=== PATIENT | female | born 1930 | race Hispanic/Latino ===

== ENCOUNTER 2017-10-18 20:09 | Inpatient (IN) | payer MEDICARE ==
[~2017-10-18] VITALS: Ht 162.6 cm; Wt 49.2 kg
[~2017-10-18 20:09] MED LIST: BENZ-39 PO; CLON0.1T PO; DONE5TAB33 PO; IBUP-2076 PO; LEVO125T11 PO; LEVO250T2 PO; TRAM-355 PO
[2017-10-18 20:48] LABS: APPEARANCE,URINE Cloudy (CLEAR); BILIRUBIN,URINE Small (NEGATIVE); COLOR,URINE Dark Yellow (YELLOW); GLUCOSE, URINE (UA) Negative (NEGATIVE); KETONES,URINE Negative (NEGATIVE); LEUKOCYTE ESTERASE ,URINE Trace (NEGATIVE); NITRATE,URINE Negative (NEGATIVE); OCCULT BLOOD,URINE Negative (NEGATIVE); PROTEIN,URINE Trace (NEGATIVE)
[2017-10-18 20:48] LABS: BASOPHILS % (AUTO) 0.2 % (0.0-5.0); HEMATOCRIT 33.5 % (36-48); LYMPHOCYTES % (AUTO) 2.9 % (21.0-51.0); MEAN CORPUSCULAR HEMOGLOBIN 31.8 pg (27.0-33.0); MEAN CORPUSCULAR HGB CONC 32.4 g/dL (32.0-36.0); MEAN CORPUSCULAR VOLUME 98.1 fL (79-99); MONOCYTES % (AUTO) 2.1 % (3.0-13.0); NEUTROPHILS % (AUTO) 94.8 % (40.0-77.0); PLATELET COUNT (AUTO) 266 K/uL (130-400); RED BLOOD CELL COUNT(AUTO) 3.41 MIL/uL (4.00-5.50); RED CELL DISTRIBUTION WIDTH 15.3 % (11.0-15.5); WHITE BLOOD COUNT (AUTO) 21.9 K/uL (4.8-10.8)
[2017-10-18 20:55] LABS: AMPHET/METH SCREEN,URINE NEGATIVE (NEGATIVE); BARBITURATE SCREEN, URINE NEGATIVE (NEGATIVE); BENZODIAZEPINES SCREEN,URINE NEGATIVE (NEGATIVE); CANNABINOID SCREEN,URINE NEGATIVE (NEGATIVE); COCAINE SCREEN,URINE NEGATIVE (NEGATIVE); OPIATE SCREEN,URINE NEGATIVE (NEGATIVE); PHENCYCLIDINE SCREEN,URINE NEGATIVE (NEGATIVE)
[2017-10-18 20:59] LABS: AMORPHOUS SEDIMENT,UR Few /LPF (None Seen); BACTERIA,URINE Rare /HPF (None Seen); RBC,URINE None Seen /HPF (0-1); SQUAMOUS EPITHELIAL CELL,UR 0-2 /HPF (0-2); WBC,URINE 0-1 /HPF (0-1)
[2017-10-18 21:06] LABS: CREATININE 1.5 mg/dL (0.5-1.5); POTASSIUM 3.9 mmol/L (3.5-5.1)
[2017-10-18 21:17] LABS: INR 1.13 (0.85-1.15); PARTIAL THROMBOPLASTIN TIME 28.8 SEC (26.3-35.5); PROTHROMBIN TIME 11.6 SEC (9.6-11.6)
[2017-10-18 21:21] LABS: BILIRUBIN,TOTAL 0.9 mg/dL (0.2-1.0); CREATINE KINASE MB 10.7 ng/mL (0.5-3.6); TOTAL PROTEIN, SERUM 6.4 g/dL (6.0-8.3)
[2017-10-18 21:33] LABS: B-TYPE NATRIURETIC PEPTIDE 704 pg/mL (0-100)
[2017-10-18] MEDS ORDERED: SODIUM CHLORIDE 0.9% 1000ML 1,000 ML IV ONE (21:36)
[2017-10-18] MEDS ORDERED: VANCOMYCIN 1GM+NS 250ML 250 ML IV ONE (21:37)
[2017-10-18] MEDS ORDERED: ZOSYN 3.375GM+NS 50ML 50 ML IV ONE (22:12)
[2017-10-18] MEDS ORDERED: VANCOMYCIN PROTOCOL PER PHARMACY IV SCH (22:30)
[2017-10-18] MEDS ORDERED: MEROPENEM 500MG+NS 50ML 50 ML IV SCH (23:30)
[2017-10-18] MEDS ORDERED: POTASSIUM CHLORIDE 20 MEQ ERTAB PO PRN (23:30)
[2017-10-18] MEDS ORDERED: POTASSIUM CHLORIDE 10% ELIXIR 20 MEQ/15 ML UDCUP PO PRN (23:30)
[2017-10-18] MEDS ORDERED: GLUCAGON 1MG KIT 1 MG ML IM PRN (23:30)
[2017-10-18] MEDS ORDERED: POTASSIUM CHLORIDE 20MEQ/100ML 100 ML IV PRN (23:30)
[2017-10-18] MEDS ORDERED: ONDANSETRON HCL MDV 20ML 2 MG/ML VIAL IV PRN (23:30)
[2017-10-18] MEDS ORDERED: VANCOMYCIN 1GM+NS 250ML 250 ML IV SCH (23:30)
[2017-10-18] MEDS ORDERED: LIDOCAINE HCL-MPF 1% 2ML VIAL IVP PRN (23:30)
[2017-10-18] MEDS ORDERED: DEXTROSE 50%-WATER 50 ML DISP.SYRIN IV PRN (23:30)
[2017-10-19] MEDS ORDERED: MEROPENEM 500 MG VIAL ONE ×2 (00:50→13:42)
[2017-10-19] MEDS ORDERED: SODIUM CHLORIDE 0.9% 100 ML IV ONE (00:50)
[2017-10-19 05:55] LABS: CREATINE KINASE MB 8.5 ng/mL (0.5-3.6); TROPONIN I 0.17 ng/mL (0.00-0.06)
[2017-10-19] MEDS ORDERED: COMPOUND IV REFRIGERATED 1 EACH IVSOLN MISC PRN (06:15)
[2017-10-19 07:03] LABS: HEMATOCRIT 31.6 % (36-48); MEAN CORPUSCULAR HEMOGLOBIN 33.2 pg (27.0-33.0); MEAN CORPUSCULAR HGB CONC 33.9 g/dL (32.0-36.0); PLATELET COUNT (AUTO) 224 K/uL (130-400); RED BLOOD CELL COUNT(AUTO) 3.22 MIL/uL (4.00-5.50); RED CELL DISTRIBUTION WIDTH 15.3 % (11.0-15.5); WHITE BLOOD COUNT (AUTO) 19.5 K/uL (4.8-10.8)
[2017-10-19 07:22] LABS: CREATININE 1.4 mg/dL (0.5-1.5); POTASSIUM 3.7 mmol/L (3.5-5.1)
[2017-10-19] MEDS ORDERED: FAMOTIDINE/PF 20 MG/2 ML VIAL IV SCH (09:00)
[2017-10-19] MEDS ORDERED: ENOXAPARIN SODIUM 30 MG/0.3 ML SQ SCH (09:00)
[2017-10-19] MEDS: PANTOPRAZOLE SODIUM 40 MG TABLET.DR PO SCH (09:00)
[2017-10-19] MEDS: DEXTROSE 5%-LACTATED RINGERS 1,000 ML IV SCH (10:30)
[2017-10-19] MEDS ORDERED: ENOXAPARIN SODIUM 30 MG/0.3 ML SQ ONE ×2 (10:31→21:58)
[2017-10-19] MEDS ORDERED: FAMOTIDINE/PF 20 MG/2 ML VIAL IV ONE ×2 (10:31→21:58)
[2017-10-19 10:39] LABS: CREATINE KINASE MB 8.7 ng/mL (0.5-3.6)
[2017-10-19] MEDS ORDERED: DEXTROSE 5%-LACTATED RINGERS 1,000 ML IV ONE (10:48)
[2017-10-19] MEDS ORDERED: POTASSIUM CHLORIDE 10% ELIXIR 20 MEQ/15 ML UDCUP PO PRN (11:15)
[2017-10-19] MEDS ORDERED: LIDOCAINE HCL-MPF 1% 2ML VIAL IVP PRN (11:15)
[2017-10-19] MEDS ORDERED: POTASSIUM CHLORIDE 20MEQ/100ML 100 ML IV PRN (11:15)
[2017-10-19] MEDS ORDERED: POTASSIUM CHLORIDE 20 MEQ ERTAB PO PRN (11:15)
[2017-10-19 16:08] LABS: CREATININE 1.5 mg/dL (0.5-1.5); POTASSIUM 3.7 mmol/L (3.5-5.1)
[2017-10-19] MEDS: ENOXAPARIN SODIUM 30 MG/0.3 ML SQ SCH (21:00)
[2017-10-19] MEDS ORDERED: METOPROLOL TARTRATE 1 MG/ML 5ML VIAL IV SCH (21:45)
[2017-10-19] MEDS ORDERED: METOPROLOL TARTRATE 1 MG/ML 5ML VIAL IV ONE (21:58)
[2017-10-19 23:35] VITALS: BP 123/59
[2017-10-20] MEDS: DEXTROSE 5%-LACTATED RINGERS 1,000 ML IV SCH (00:36)
[2017-10-20] MEDS: MEROPENEM 500 MG VIAL IVP SCH ×5 (00:36→22:20)
[2017-10-20] MEDS: ASCORBIC ACID 500 MG TAB PO SCH ×3 (00:39→22:21)
[2017-10-20 00:48] LABS: CREATINE KINASE MB 3.3 ng/mL (0.5-3.6); TROPONIN I 0.29 ng/mL (0.00-0.06)
[2017-10-20 04:00] VITALS: BP 121/79
[2017-10-20 07:00] VITALS: BP 111/62
[2017-10-20 07:18] LABS: HEMATOCRIT 25.2 % (36-48); MEAN CORPUSCULAR HEMOGLOBIN 31.5 pg (27.0-33.0); MEAN CORPUSCULAR HGB CONC 32.4 g/dL (32.0-36.0); MEAN CORPUSCULAR VOLUME 97.4 fL (79-99); PLATELET COUNT (AUTO) 163 K/uL (130-400); RED BLOOD CELL COUNT(AUTO) 2.58 MIL/uL (4.00-5.50); RED CELL DISTRIBUTION WIDTH 15.3 % (11.0-15.5); WHITE BLOOD COUNT (AUTO) 15.6 K/uL (4.8-10.8)
[2017-10-20 07:32] LABS: CREATININE 1.6 mg/dL (0.5-1.5); POTASSIUM 3.5 mmol/L (3.5-5.1)
[2017-10-20 07:50] LABS: CREATINE KINASE MB 1.8 ng/mL (0.5-3.6); TROPONIN I 0.25 ng/mL (0.00-0.06)
[2017-10-20] MEDS ORDERED: DEXTROSE 5%-WATER 1,000 ML IV SCH (09:25)
[2017-10-20 10:36] LABS: RETICULOCYTE % (AUTO) 1.19 % (0.42-2.23)
[2017-10-20 11:26] LABS: % IRON SATURATION 47.3 % (22-44)
[2017-10-20] MEDS: PANTOPRAZOLE SODIUM 40 MG TABLET.DR PO SCH (11:27)
[2017-10-20] MEDS: MULTIVITAMIN WITH MINERALS TABLET PO SCH (11:27)
[2017-10-20] MEDS: ASPIRIN 81MG TAB.CHEW PO SCH (11:27)
[2017-10-20] MEDS: ENOXAPARIN SODIUM 30 MG/0.3 ML SQ SCH ×2 (11:28→22:20)
[2017-10-20 11:48] VITALS: BP 111/70
[2017-10-20] MEDS ORDERED: COMPOUND IV MISC 1 EACH IVSOLN MISC PRN (13:30)
[2017-10-20 16:47] VITALS: BP 124/66
[2017-10-20 19:56] VITALS: BP 114/83
[2017-10-20] MEDS: VANCOMYCIN 750MG + NS 250 ML IV SCH ×2 (22:22)
[2017-10-21] VITALS (7 sets, daily range): BP systolic 116–135; BP diastolic 68–86
[2017-10-21 04:01] LABS: HEMATOCRIT 24.8 % (36-48); MEAN CORPUSCULAR HEMOGLOBIN 33.3 pg (27.0-33.0); MEAN CORPUSCULAR HGB CONC 34.3 g/dL (32.0-36.0); MEAN CORPUSCULAR VOLUME 97.1 fL (79-99); PLATELET COUNT (AUTO) 145 K/uL (130-400); RED BLOOD CELL COUNT(AUTO) 2.56 MIL/uL (4.00-5.50); RED CELL DISTRIBUTION WIDTH 14.9 % (11.0-15.5); WHITE BLOOD COUNT (AUTO) 16.4 K/uL (4.8-10.8)
[2017-10-21 04:08] LABS: CREATININE 1.2 mg/dL (0.5-1.5); POTASSIUM 3.5 mmol/L (3.5-5.1)
[2017-10-21 04:23] LABS: B-TYPE NATRIURETIC PEPTIDE 364 pg/mL (0-100)
[2017-10-21 04:26] LABS: BAND NEUTROPHILS % (MANUAL) 16 % (0-2); LYMPHOCYTES % (MANUAL) 1 % (22-44); MAN.DIFF COMMENT-IMPRESSION MANUAL DIFFERENTIAL; METAMYELOCYTES % 1 % (0-0); SEGMENTED NEUTROPHILS % 82 % (40-70)
[2017-10-21 04:27] LABS: PLATELET MORPHOLOGY COMMENT ADEQUATE
[2017-10-21] MEDS: HONEY 1 APPL/ML TUBE TP SCH ×2 (05:38→17:45)
[2017-10-21] MEDS: MEROPENEM 500 MG VIAL IVP SCH ×2 (06:48→12:53)
[2017-10-21] MEDS: ENOXAPARIN SODIUM 30 MG/0.3 ML SQ SCH ×2 (09:00→21:25)
[2017-10-21] MEDS ORDERED: ACETAMINOPHEN-CODEINE 300/30MG TAB PO PRN (10:00)
[2017-10-21] MEDS ORDERED: MORPHINE SULFATE 4 MG/1ML SYG IVP PRN (10:00)
[2017-10-21] MEDS: IRON SUCROSE COMPLEX 100 MG in SODIUM CHLORIDE 0.9% 50 ML IV SCH (12:53)
[2017-10-21] MEDS: PANTOPRAZOLE SODIUM 40 MG TABLET.DR PO SCH (12:54)
[2017-10-21] MEDS: MULTIVITAMIN WITH MINERALS TABLET PO SCH (12:54)
[2017-10-21] MEDS: ASCORBIC ACID 500 MG TAB PO SCH ×2 (12:54→19:42)
[2017-10-21] MEDS: ASPIRIN 81MG TAB.CHEW PO SCH (12:54)
[2017-10-21] MEDS ORDERED: CEFAZOLIN 1GM / D5W 50ML 50 ML IV SCH (15:30)
[2017-10-21] MEDS ORDERED: CEFAZOLIN SODIUM 1 GM VIAL IVP SCH (15:45)
[2017-10-21] MEDS: CEFAZOLIN SODIUM 1 GM VIAL IVP SCH (21:24)
[2017-10-22] VITALS (21 sets, daily range): BP systolic 88–126; BP diastolic 50–80
[2017-10-22 04:36] LABS: MEAN CORPUSCULAR HEMOGLOBIN 33.2 pg (27.0-33.0); MEAN CORPUSCULAR HGB CONC 34.1 g/dL (32.0-36.0); MEAN CORPUSCULAR VOLUME 97.3 fL (79-99); NUCLEATED RED BLOOD CELLS 0.1 % (0.0-0.19); PLATELET COUNT (AUTO) 127 K/uL (130-400); RED BLOOD CELL COUNT(AUTO) 2.47 MIL/uL (4.00-5.50); RED CELL DISTRIBUTION WIDTH 15.1 % (11.0-15.5); WHITE BLOOD COUNT (AUTO) 14.5 K/uL (4.8-10.8)
[2017-10-22 04:59] LABS: CREATININE 0.9 mg/dL (0.5-1.5)
[2017-10-22] MEDS: CEFAZOLIN SODIUM 1 GM VIAL IVP SCH ×3 (05:03→20:52)
[2017-10-22 06:09] LABS: BAND NEUTROPHILS % (MANUAL) 9 % (0-2); LYMPHOCYTES % (MANUAL) 7 % (22-44); MAN.DIFF COMMENT-IMPRESSION MANUAL DIFFERENTIAL; PLATELET MORPHOLOGY COMMENT SLIGHTLY DECREASED; REACTIVE LYMPHOCYTES 1 % (0-0); SEGMENTED NEUTROPHILS % 83 % (40-70)
[2017-10-22] MEDS: ASCORBIC ACID 500 MG TAB PO SCH ×2 (09:00→20:52)
[2017-10-22] MEDS: ASPIRIN 81MG TAB.CHEW PO SCH (09:00)
[2017-10-22] MEDS: ENOXAPARIN SODIUM 30 MG/0.3 ML SQ SCH ×2 (09:00→20:53)
[2017-10-22] MEDS: MULTIVITAMIN WITH MINERALS TABLET PO SCH (09:00)
[2017-10-22] MEDS: PANTOPRAZOLE SODIUM 40 MG TABLET.DR PO SCH (09:00)
[2017-10-22] MEDS ORDERED: DEXTROSE 5%-WATER 1,000 ML IV SCH (10:00)
[2017-10-22 11:49] LABS: INR 1.02 (0.85-1.15); PROTHROMBIN TIME 10.7 SEC (9.6-11.6)
[2017-10-22] MEDS: IRON SUCROSE COMPLEX 100 MG in SODIUM CHLORIDE 0.9% 50 ML IV SCH (17:32)
[2017-10-22] MEDS: HONEY 1 APPL/ML TUBE TP SCH (18:20)
[2017-10-22] MEDS: VANCOMYCIN 750MG + NS 250 ML IV SCH ×2 (20:52)
[2017-10-23 03:35] VITALS: BP 133/64
[2017-10-23] MEDS: CEFAZOLIN SODIUM 1 GM VIAL IVP SCH ×2 (05:01→13:47)
[2017-10-23 05:56] LABS: HEMATOCRIT 23.1 % (36-48); MEAN CORPUSCULAR HEMOGLOBIN 31.5 pg (27.0-33.0); MEAN CORPUSCULAR HGB CONC 32.5 g/dL (32.0-36.0); MEAN CORPUSCULAR VOLUME 96.9 fL (79-99); PLATELET COUNT (AUTO) 142 K/uL (130-400); RED BLOOD CELL COUNT(AUTO) 2.38 MIL/uL (4.00-5.50); RED CELL DISTRIBUTION WIDTH 15.1 % (11.0-15.5); WHITE BLOOD COUNT (AUTO) 12.1 K/uL (4.8-10.8)
[2017-10-23 06:11] LABS: CREATININE 0.7 mg/dL (0.5-1.5); POTASSIUM 3.8 mmol/L (3.5-5.1)
[2017-10-23 08:23] VITALS: BP 106/82
[2017-10-23] MEDS: PANTOPRAZOLE SODIUM 40 MG TABLET.DR PO SCH (09:00)
[2017-10-23] MEDS: ASPIRIN 81MG TAB.CHEW PO SCH (09:00)
[2017-10-23] MEDS: MULTIVITAMIN WITH MINERALS TABLET PO SCH (09:00)
[2017-10-23] MEDS: ASCORBIC ACID 500 MG TAB PO SCH (09:00)
[2017-10-23 11:20] VITALS: BP 113/73
[2017-10-23] MEDS: HONEY 1 APPL/ML TUBE TP SCH (11:22)
[2017-10-23] MEDS: ENOXAPARIN SODIUM 30 MG/0.3 ML SQ SCH (11:25)
[2017-10-23] MEDS: IRON SUCROSE COMPLEX 100 MG in SODIUM CHLORIDE 0.9% 50 ML IV SCH (13:47)
[2017-10-23 18:02] VITALS: BP 100/64
[2017-10-23 20:00] VITALS: BP 96/68
[2017-10-24] VITALS: BP 121/75
== END 2017-10-24 04:10 | DRG 871 ==
LOC: EDH 20:09 → EDHIP 21:56 → OBSVTOIN 21:56 → 2AH 10-19 22:40 → 3CH 10-21 20:01
PROVIDERS: ADMIT Family Medicine; ATTEND Family Medicine
PROC: 0HB6XZZ Excision of Back Skin, External Approach (ICD-10-PCS; 2017-10-19)
PROC: 0DH63UZ Insertion of Feeding Device into Stomach, Percutaneous Approach (ICD-10-PCS; principal; 2017-10-22)
DX: A41.9 Sepsis, unspecified organism (principal); E43 Unspecified severe protein-calorie malnutrition; L89.154 Pressure ulcer of sacral region, stage 4; G93.41 Metabolic encephalopathy; I82.412 Acute embolism and thrombosis of left femoral vein; E87.0 Hyperosmolality and hypernatremia; R13.12 Dysphagia, oropharyngeal phase; E86.0 Dehydration; R64 Cachexia; Z68.1 Body mass index [BMI] 19.9 or less, adult; N39.0 Urinary tract infection, site not specified; B96.89 Other specified bacterial agents as the cause of diseases classified elsewhere; D64.9 Anemia, unspecified; E03.9 Hypothyroidism, unspecified; E78.5 Hyperlipidemia, unspecified; F03.90 Unspecified dementia, unspecified severity, without behavioral disturbance, psychotic disturbance, mood disturbance, and anxiety; I10 Essential (primary) hypertension; L89.619 Pressure ulcer of right heel, unspecified stage; M19.90 Unspecified osteoarthritis, unspecified site; L89.629 Pressure ulcer of left heel, unspecified stage; Z66 Do not resuscitate; Z74.01 Bed confinement status; Z93.1 Gastrostomy status; Z93.3 Colostomy status; Z90.710 Acquired absence of both cervix and uterus
CPT/HCPCS: 36415; 70450; 71045; 80048; 80053; 80305; 81001; 82550; 82553; 82607; 82728; 82746; 82948; 83874; 83880; 84484; 85025; 85027; 85610; 85730; 87040; 87070; 87076; 87077; 87088; 87186; 92610; 93005; 93971; 99291; A4218; C1894; J0690; J1650; J1756; J2185; J2270; J2543; J3370; J3490; J7030; J7070

== ENCOUNTER 2018-05-05 10:41 | Emergency (ER) | payer MEDICARE ==
[~2018-05-05 10:41] MED LIST changes: -BENZ-39 PO; -DONE5TAB33 PO; -IBUP-2076 PO; -LEVO125T11 PO; -LEVO250T2 PO; -TRAM-355 PO
[2018-05-05] MEDS ORDERED: DIATR MEGLU/DIATRIZOATE SODIUM 30 ML BOTTLE ONE (11:10)
== END 2018-05-05 12:46 | disposition home or self-care (01) ==
LOC: EDH 10:41
DX: Z43.1 Encounter for attention to gastrostomy (principal); I10 Essential (primary) hypertension; M19.90 Unspecified osteoarthritis, unspecified site; Z79.899 Other long term (current) drug therapy
CPT/HCPCS: 43760; 74018; 99284; Q9963

== ENCOUNTER → 2018-08-09 | Outpatient (CLI) | payer MEDICARE, OTHER | END | disposition home or self-care (01) | LOC: RAH 10:45 | PROVIDERS: ATTEND Internal Medicine Infectious Disease | DX: J90 Pleural effusion, not elsewhere classified (principal); J98.11 Atelectasis; L90.5 Scar conditions and fibrosis of skin; I51.7 Cardiomegaly | CPT/HCPCS: 71250 ==

== ENCOUNTER 2018-08-31 00:11 | Inpatient (IN) | payer MEDICARE | END 2018-09-03 21:44 | LOC: EDH 00:11 → 4AH 09-02 18:50 → EDHIP 02:25 → 2CH 05:48 | DX: A41.9 Sepsis, unspecified organism (principal); J18.9 Pneumonia, unspecified organism; E43 Unspecified severe protein-calorie malnutrition; G93.41 Metabolic encephalopathy; L89.154 Pressure ulcer of sacral region, stage 4; R53.2 Functional quadriplegia; R64 Cachexia; E87.0 Hyperosmolality and hypernatremia; E87.1 Hypo-osmolality and hyponatremia ==

== ENCOUNTER 2019-08-23 07:10 | Emergency (ER) | payer MEDICARE ==
[~2019-08-23 07:10] MED LIST changes: +ASCO500T10 PEG; +DSSL PEG; +FURO20TA6 PEG; +METO10TA41 PEG; +MULT9LIQ9 PO
== END 2019-08-23 11:10 | disposition home or self-care (01) ==
LOC: EDH 07:10
DX: K94.23 Gastrostomy malfunction (principal); I10 Essential (primary) hypertension; M19.90 Unspecified osteoarthritis, unspecified site

== ENCOUNTER 2019-09-05 09:59 | Inpatient (IN) | payer MEDICARE ==
[~2019-09-05] VITALS: Ht 160 cm; Wt 61.1 kg
[2019-09-05 10:47] LABS: BASOPHILS % (AUTO) 0.1 % (0.0-5.0); EOSINOPHILS % (AUTO) 0.1 % (0.0-8.0); HEMATOCRIT 33.9 % (36-48); LYMPHOCYTES % (AUTO) 3.4 % (21.0-51.0); MEAN CORPUSCULAR HEMOGLOBIN 33.4 pg (27.0-33.0); MEAN CORPUSCULAR HGB CONC 33.9 g/dL (32.0-36.0); MEAN CORPUSCULAR VOLUME 98.5 fL (79-99); MONOCYTES % (AUTO) 5.9 % (3.0-13.0); PLATELET COUNT (AUTO) 126 K/uL (130-400); RED BLOOD CELL COUNT(AUTO) 3.44 MIL/uL (4.00-5.50); RED CELL DISTRIBUTION WIDTH 13.2 % (11.0-15.5); WHITE BLOOD COUNT (AUTO) 14.6 K/uL (4.8-10.8)
[2019-09-05 10:49] LABS: APPEARANCE,URINE TURBID (CLEAR); BILIRUBIN,URINE NEGATIVE (NEGATIVE); COLOR,URINE YELLOW (YELLOW); GLUCOSE, URINE (UA) NEGATIVE (NEGATIVE); KETONES,URINE NEGATIVE (NEGATIVE); LEUKOCYTE ESTERASE ,URINE LARGE (NEGATIVE); NITRATE,URINE POSITIVE (NEGATIVE); OCCULT BLOOD,URINE LARGE (NEGATIVE); PROTEIN,URINE 100 mg/dL (NEGATIVE); UROBILINOGEN,URINE 0.2 mg/dL (0.2-1.0)
[2019-09-05 10:55] LABS: ALBUMIN 2.6 g/dL (3.5-5.0); BILIRUBIN,TOTAL 0.4 mg/dL (0.2-1.0); CREATININE 1.5 mg/dL (0.5-1.5); POTASSIUM 3.8 mmol/L (3.5-5.1); TOTAL PROTEIN, SERUM 7.2 g/dL (6.0-8.3)
[2019-09-05] MEDS ORDERED: ZOSYN 3.375GM+NS 50ML 50 ML IV ONE ×2 (10:55→19:00)
[2019-09-05] MEDS ORDERED: SODIUM CHLORIDE 0.9% 1000ML 1,000 ML IV ONE ×2 (10:55→12:17)
[2019-09-05 11:01] LABS: BACTERIA,URINE Many /HPF (None Seen); SQUAMOUS EPITHELIAL CELL,UR Few /HPF (0-2); WBC,URINE 51-100 /HPF (0-1)
[2019-09-05] MEDS ORDERED: DIATR MEGLU/DIATRIZOATE SODIUM 30 ML BOTTLE ONE (14:37)
[2019-09-05] MEDS: ZOSYN 3.375GM+NS 50ML 50 ML IV SCH (21:00)
[2019-09-05] MEDS ORDERED: ENOXAPARIN SODIUM 30 MG/0.3 ML SQ ONE (21:56)
[2019-09-05 22:10] VITALS: BP 151/82
[2019-09-05] MEDS ORDERED: NYSTATIN 15 GM POWDER TP SCH (23:30)
[2019-09-05] MEDS ORDERED: METOCLOPRAMIDE 10 MG TABLET PEG SCH (23:30)
[2019-09-05] MEDS ORDERED: ONDANSETRON ODT 4 MG TAB PEG PRN (23:30)
[2019-09-05] MEDS ORDERED: NEOMY SULF/BACITRA/POLYMYXIN B 1 EACH PACKET TP SCH (23:30)
[2019-09-05] MEDS ORDERED: LEVO750T21 PEG (23:31)
[2019-09-05] MEDS ORDERED: FAMO20TA8 PEG (23:31)
[2019-09-05] MEDS ORDERED: ASPI-555 PEG (23:31)
[2019-09-05] MEDS ORDERED: ONDA4TAB10 PEG (23:31)
[2019-09-05] MEDS ORDERED: SANTO TP (23:31)
[2019-09-05] MEDS ORDERED: NEOM1PAC2 TP (23:31)
[2019-09-05] MEDS ORDERED: NYSTPW TP (23:31)
--- NOTE | 2019-09-05 23:39 | NUR ---
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
[2019-09-06] MEDS: ACETAMINOPHEN ELIXIR 650 MG/20.3 ML UDCUP PEG PRN (03:33)
[2019-09-06 03:53] VITALS: BP 152/66
--- NOTE | 2019-09-06 04:00 | NUR ---
BED BATH Pt bathed per staff,Oral care,hollingsworth cath care rendered.
[2019-09-06 05:39] LABS: HEMATOCRIT 31.9 % (36-48); MEAN CORPUSCULAR HEMOGLOBIN 33.4 pg (27.0-33.0); MEAN CORPUSCULAR HGB CONC 33.2 g/dL (32.0-36.0); MEAN CORPUSCULAR VOLUME 100.6 fL (79-99); PLATELET COUNT (AUTO) 113 K/uL (130-400); RED BLOOD CELL COUNT(AUTO) 3.17 MIL/uL (4.00-5.50); RED CELL DISTRIBUTION WIDTH 13.2 % (11.0-15.5); WHITE BLOOD COUNT (AUTO) 8.9 K/uL (4.8-10.8)
[2019-09-06 05:47] LABS: CREATININE 1.2 mg/dL (0.5-1.5); MAGNESIUM 2.6 mg/dL (1.80-2.40); POTASSIUM 3.1 mmol/L (3.5-5.1)
[2019-09-06 06:06] LABS: BAND NEUTROPHILS % (MANUAL) 6 % (0-2); LYMPHOCYTES % (MANUAL) 6 % (22-44); MAN.DIFF COMMENT-IMPRESSION MANUAL DIFFERENTIAL; MONOCYTES % (MANUAL) 4 % (2-9); SEGMENTED NEUTROPHILS % 84 % (40-70)
[2019-09-06 08:00] VITALS: BP 138/59
[2019-09-06] MEDS ORDERED: ENOXAPARIN SODIUM 30 MG/0.3 ML SQ SCH (09:00)
[2019-09-06] MEDS: COLLAGENASE APPL TP SCH (09:00)
[2019-09-06] MEDS: SODIUM HYPOCHLORITE 0.25% [HALF STRENGTH] 473 ML TOPICAL SOLN TP SCH (09:00)
[2019-09-06] MEDS ORDERED: LEVOFLOXACIN 750 MG TABLET PEG SCH (09:00)
[2019-09-06] MEDS: MULTIVITS W-MIN/FERROUS GLUC 237 ML BOTTLE PEG SCH (09:00)
--- NOTE | 2019-09-06 09:16 | NUR ---
NOTIFIED DR. FRANCIS THAT THE PEG TUBE IS LEAKING. HE ORDERED CONSULT FOR DR. COHEN.
[2019-09-06] MEDS ORDERED: VANCOMYCIN PROTOCOL PER PHARMACY IV SCH (09:30)
[2019-09-06] MEDS ORDERED: COMPOUND IV REFRIGERATED 1 EACH IVSOLN MISC PRN (09:45)
[2019-09-06] MEDS ORDERED: VANCOMYCIN 1.25 GM in SODIUM CHLORIDE 0.9% 250 ML IV ONE (10:00)
[2019-09-06] MEDS: ZOSYN 3.375GM+NS 50ML 50 ML IV SCH ×2 (11:13→20:27)
[2019-09-06] MEDS: ASPIRIN 81MG TAB.CHEW PEG SCH (11:14)
[2019-09-06] MEDS: LEVOFLOXACIN 750 MG TABLET PEG SCH (11:14)
[2019-09-06] MEDS: ASCORBIC ACID 500 MG TAB PEG SCH ×2 (11:14→20:28)
[2019-09-06] MEDS: DOCUSATE NA 100MG/10ML UDCUP PEG SCH (11:14)
[2019-09-06] MEDS: FAMOTIDINE 20MG TAB 20 MG TAB PEG SCH (11:15)
[2019-09-06] MEDS: FUROSEMIDE 20 MG TABLET PEG SCH (11:16)
[2019-09-06 12:00] VITALS: BP 123/55
--- NOTE | 2019-09-06 12:52 | NUR ---
INITIAL Patient is a intermediate resident at [facility]. Emergency contats are daughters: Tanisha Faithirez, [phone] and Meena Oglesby, [phone]. MAVIS/Choice completed and placed in chart. SHARATH contacted Milly Haro, Social Scientist for [facility] and was informed that patient is able to return to halfway. DCP is [facility]. Addendum: 09/06/19 at 1255 by LEANNA BAXTER SS Amended: Links added.
--- NOTE | 2019-09-06 13:18 | NUR ---
TUBE FEEDING RECOMMENDATIONS PEG IN PLACE. CURRENTLY RECEIVING JEVITY 1.5 - 1 CAN EVERY 6 HRS. 250ML Q6HR FLUSHES. MEDS REVIEWED. LABS REVIEWED. STG 4 SACRUM ULCER NOTED. LBM: 09/06. RD RECOMMENDS JEVITY 1.5 - 5 CANS/D 1 CAN 6AM, 1 CAN 10AM, 1 CAN 2PM, 1 CAN 6PM, 1 CAN 10PM FLUSH WITH 25ML BEFORE AND AFTER EACH FEEDING + 200ML/D FOR MEDS PROVIDE ALYSHA BID VIA PEG TUBE - MIX ALYSHA PACKET WITH 120ML + FLUSH WITH 30ML BEFORE AND AFTER ADMINISTRATION = TOTAL WATER IS 1710ML/D RECOMMEND 500MG VITAMIN C BID - AID WOUND HEALING RECOMMEND 220MG ZINC SULFATE QD FOR 14 DAYS - AID WOUND HEALING MONITOR RESIDUALS, LABS, BM RD WILL CONTINUE TO MONITOR AND FOLLOW UP, THANK YOU. Addendum: 09/06/19 at [address] Amended: Links added.
--- NOTE | 2019-09-06 14:58 | NUR ---
NOTIFIED DR. COHEN'S OFFICE FOR THE CONSULT OF THIS PATIENT. WILL FOLLOW UP IF NEEDED
--- NOTE | 2019-09-06 15:28 | NUR ---
CM NOTE PER [facility] PREPARER, PATIENT APPROVED AND ACCEPTED TO RETURN TO FACILITY. PENDING URINE CULTURES TO RESULT, BERHANE BOYD FAXED AND RECEIVED, PENDING ORDER FOR DISCHARGE FROM MD ONCE READY TO RETURN TO SNF.
[2019-09-06 16:00] VITALS: BP 142/54
--- NOTE | 2019-09-06 16:00 | NUR ---
[facility] CONSULT PATIENT ASSESSED REQUESTED: PATIENT PRESENTS WITH STAGE IV PRESSURE ULCER TO SACRUM; [facility] RECOMMENDATIONS SUBMITTED. Addendum: 09/09/19 at 0759 by HELENE FITZPATRICK LVN LVN W Amended: Links added.
--- NOTE | 2019-09-06 19:20 | NUR ---
MD Dr COHEN came to see pt.
[2019-09-06] MEDS ORDERED: HONEY 1 APPL/ML TUBE TP PRN (19:45)
--- NOTE | 2019-09-06 20:00 | NUR ---
CONSENT Consent for EGd with mac/peg obtained per Lakshmi Barboza from pt.s daughter Tanisha.
[2019-09-06] MEDS: LIDOCAINE HCL-MPF 1% 2ML VIAL IV PRN (20:27)
[2019-09-06] MEDS: POTASSIUM CHLORIDE 20MEQ/100ML 100 ML IV PRN (20:27)
[2019-09-06 21:21] VITALS: BP 155/56
[2019-09-07] VITALS (21 sets, daily range): BP systolic 119–163; BP diastolic 46–90
[2019-09-07] MEDS: LIDOCAINE HCL-MPF 1% 2ML VIAL IV PRN ×2 (01:11→06:39)
[2019-09-07] MEDS: POTASSIUM CHLORIDE 20MEQ/100ML 100 ML IV PRN ×2 (01:11→06:40)
--- NOTE | 2019-09-07 05:03 | NUR ---
NURSING CARE Pt given bed bath per staff,Npo for EGD with peg replacement today.Oral care,sheng care and hollingsworth cath done per staff.Pt turned and repositioned q 2 hrs.
[2019-09-07 05:20] LABS: BASOPHILS % (AUTO) 0.1 % (0.0-5.0); EOSINOPHILS % (AUTO) 0.5 % (0.0-8.0); HEMATOCRIT 31.8 % (36-48); LYMPHOCYTES % (AUTO) 8.2 % (21.0-51.0); MEAN CORPUSCULAR HEMOGLOBIN 33.5 pg (27.0-33.0); MEAN CORPUSCULAR VOLUME 101.6 fL (79-99); MONOCYTES % (AUTO) 9.7 % (3.0-13.0); NEUTROPHILS % (AUTO) 80.9 % (40.0-77.0); PLATELET COUNT (AUTO) 121 K/uL (130-400); RED BLOOD CELL COUNT(AUTO) 3.13 MIL/uL (4.00-5.50); RED CELL DISTRIBUTION WIDTH 13.2 % (11.0-15.5); WHITE BLOOD COUNT (AUTO) 7.8 K/uL (4.8-10.8)
[2019-09-07 05:38] LABS: INR 1.04 (0.85-1.15); PARTIAL THROMBOPLASTIN TIME 31.4 SEC (26.3-35.5); PROTHROMBIN TIME 10.9 SEC (9.6-11.6)
[2019-09-07 05:42] LABS: CREATININE 1.1 mg/dL (0.5-1.5); MAGNESIUM 2.3 mg/dL (1.80-2.40); POTASSIUM 3.6 mmol/L (3.5-5.1)
[2019-09-07] MEDS: DOCUSATE NA 100MG/10ML UDCUP PEG SCH (09:00)
[2019-09-07] MEDS: FUROSEMIDE 20 MG TABLET PEG SCH (09:00)
[2019-09-07] MEDS: SODIUM HYPOCHLORITE 0.25% [HALF STRENGTH] 473 ML TOPICAL SOLN TP SCH (09:00)
[2019-09-07] MEDS: COLLAGENASE APPL TP SCH (09:00)
[2019-09-07] MEDS: MULTIVITS W-MIN/FERROUS GLUC 237 ML BOTTLE PEG SCH (09:00)
[2019-09-07] MEDS: FAMOTIDINE 20MG TAB 20 MG TAB PEG SCH (09:00)
[2019-09-07] MEDS: ASCORBIC ACID 500 MG TAB PEG SCH ×2 (09:00→22:56)
[2019-09-07] MEDS: ASPIRIN 81MG TAB.CHEW PEG SCH (09:00)
[2019-09-07] MEDS: ZOSYN 3.375GM+NS 50ML 50 ML IV SCH ×2 (09:12→22:56)
[2019-09-07] MEDS: VANCOMYCIN 1GM+NS 250ML 250 ML IV SCH (09:21)
--- NOTE | 2019-09-07 14:10 | NUR ---
PATIENT OFF UNIT TO GI LAB FOR EGD AND PEG TUBE PLACEMENT
[2019-09-07] MEDS ORDERED: LIDOCAINE HCL 1% 20 ML VIAL ONE (14:33)
[2019-09-07] MEDS ORDERED: PROPOFOL 10 MG/ML 20ML VIAL IV ONE (14:33)
--- NOTE | 2019-09-07 15:27 | NUR ---
REPORT from PACU REPORT RECEIVED FOR PATIENT S/P EGD AND PEG TUBE PLACEMENT , B/P 148/59 P65, T 97.8 R 17 AND SATING 100% ON O2 AT 2 LITERS, DENIES PAIN MAY RESUME FEEDING AND FLUSHES OF FREE WATER 300CC
[2019-09-07] MEDS: PHARMACY COMMUNICATION MISC SCH (16:00)
--- NOTE | 2019-09-07 17:12 | NUR ---
1645 placed BPCI Letter on bedside table, patient was asleep.
[2019-09-08] VITALS: BP 138/69
[2019-09-08 04:00] VITALS: BP 144/69
[2019-09-08 05:28] LABS: CREATININE 1.1 mg/dL (0.5-1.5); POTASSIUM 3.3 mmol/L (3.5-5.1)
[2019-09-08] MEDS: PHARMACY COMMUNICATION MISC SCH ×3 (06:46→16:00)
[2019-09-08] MEDS: SODIUM HYPOCHLORITE 0.25% [HALF STRENGTH] 473 ML TOPICAL SOLN TP SCH (06:47)
--- NOTE | 2019-09-08 07:19 | NUR ---
DR FRANCIS CALLED FOR PATIENT BLOOD PRESSURE 208/78 ORDERS RECEIVED FOR LISINOPRIL 10MG PER PEG DAILY AND HYDRALAZINE 50MG ONCE PER PEG NOW ORDERS PLACED .
[2019-09-08] MEDS ORDERED: HYDRALAZINE HCL 25 MG TABLET PEG SCH (07:45)
[2019-09-08 08:20] VITALS: BP 208/78
[2019-09-08] MEDS: COLLAGENASE APPL TP SCH (09:00)
[2019-09-08] MEDS: VANCOMYCIN 1GM+NS 250ML 250 ML IV SCH (09:07)
[2019-09-08] MEDS: ZOSYN 3.375GM+NS 50ML 50 ML IV SCH ×2 (09:07→21:53)
[2019-09-08] MEDS: DOCUSATE NA 100MG/10ML UDCUP PEG SCH (09:07)
[2019-09-08] MEDS: LISINOPRIL 10 MG TABLET PEG SCH (09:08)
[2019-09-08] MEDS: ASCORBIC ACID 500 MG TAB PEG SCH ×2 (09:08→21:54)
[2019-09-08] MEDS: FUROSEMIDE 20 MG TABLET PEG SCH (09:08)
[2019-09-08] MEDS: LEVOFLOXACIN 750 MG TABLET PEG SCH (09:08)
[2019-09-08] MEDS: FAMOTIDINE 20MG TAB 20 MG TAB PEG SCH (09:08)
[2019-09-08] MEDS: ASPIRIN 81MG TAB.CHEW PEG SCH (09:08)
[2019-09-08] MEDS ORDERED: POTASSIUM CHLORIDE 20 MEQ ERTAB PO ONE (11:08)
[2019-09-08] MEDS: MULTIVITS W-MIN/FERROUS GLUC 237 ML BOTTLE PEG SCH (11:38)
[2019-09-08 12:09] VITALS: BP 187/75
--- NOTE | 2019-09-08 12:09 | NUR ---
CM NOTE CLINICALS AND PROGRESS NOTES FAXED AND RECEIVED AT [facility], PENDING DISCHARGE TODAY. EMS FORM FAXED AND RECEIVED. PENDING DC ORDERS.
[2019-09-08] MEDS ORDERED: POTASSIUM CHLORIDE 10% ELIXIR 20 MEQ/15 ML UDCUP ONE (14:45)
[2019-09-08 16:41] VITALS: BP 121/63
[2019-09-08 20:00] VITALS: BP 135/55
[2019-09-09] VITALS: BP 127/61
[2019-09-09 04:00] VITALS: BP 116/48
[2019-09-09 04:39] LABS: HEMATOCRIT 32.1 % (36-48); MEAN CORPUSCULAR HEMOGLOBIN 33.2 pg (27.0-33.0); MEAN CORPUSCULAR HGB CONC 32.1 g/dL (32.0-36.0); MEAN CORPUSCULAR VOLUME 103.5 fL (79-99); PLATELET COUNT (AUTO) 139 K/uL (130-400); RED CELL DISTRIBUTION WIDTH 13.9 % (11.0-15.5); WHITE BLOOD COUNT (AUTO) 11.5 K/uL (4.8-10.8)
[2019-09-09 05:00] LABS: CREATININE 1.1 mg/dL (0.5-1.5); MAGNESIUM 1.9 mg/dL (1.80-2.40); POTASSIUM 3.6 mmol/L (3.5-5.1)
[2019-09-09 07:47] VITALS: BP 137/63
[2019-09-09] MEDS: PHARMACY COMMUNICATION MISC SCH ×3 (08:00→14:50)
[2019-09-09] MEDS: SODIUM HYPOCHLORITE 0.25% [HALF STRENGTH] 473 ML TOPICAL SOLN TP SCH (09:00)
[2019-09-09] MEDS: COLLAGENASE APPL TP SCH (09:00)
[2019-09-09] MEDS: ZOSYN 3.375GM+NS 50ML 50 ML IV SCH ×2 (10:43→22:17)
[2019-09-09] MEDS: DOCUSATE NA 100MG/10ML UDCUP PEG SCH (10:46)
[2019-09-09] MEDS: ASPIRIN 81MG TAB.CHEW PEG SCH (10:47)
[2019-09-09] MEDS: ASCORBIC ACID 500 MG TAB PEG SCH ×2 (10:47→22:17)
[2019-09-09] MEDS: LISINOPRIL 10 MG TABLET PEG SCH (10:47)
[2019-09-09] MEDS: FAMOTIDINE 20MG TAB 20 MG TAB PEG SCH (10:47)
[2019-09-09] MEDS: FUROSEMIDE 20 MG TABLET PEG SCH (10:48)
[2019-09-09 12:00] VITALS: BP 119/76
--- NOTE | 2019-09-09 13:01 | NUR ---
CONSULT DR. FRANCIS REQUEST DR. BANERJEE BE CONSULTED FOR PERSISTENT HYPERNATREMIA. SPOKE WITH ARIS AT DR. BANERJEE'S OFFICE.
--- NOTE | 2019-09-09 14:39 | NUR ---
INCREASE FLUSHES DUE TO ELEVATED NA SPOKE TO CHARGE NURSE IQRA, SHE WILL CONFIRM WITH RN IF PT IS RECEIVING ALYSHA BID FOR ADDED FLUSHES TO MEET PT FLUID NEEDS. IF PT IS RECEIVING ALYSHA BID WITH APPROPRIATE FLUSHES AND MIXING, AND NA CONTINUES TO BE ELEVATED, RECOMMEND TO INCREASE FLUSHES. PLEASE CALL DIETITIAN AT EXT 1905 WITH ANY QUESTIONS REGARDING ALYSHA ADMINISTRATION VIA PEG TUBE. -CONTINUE JEVITY 1.5 - 5 CANS/D, FLUSH WITH 25ML BEFORE AND AFTER EACH TUBE FEEDING -CONTINUE ALYSHA BID FOR WOUND HEALING (MIX 1 PACKET WITH 120ML WATER, FLUSH WITH ADDITIONAL 30MLS BEFORE AND AFTER EACH ALYSHA ADMINISTRATION) -IF NA CONTINUES TO BE ELEVATED, INCREASE FLUSHES TO 45ML BEFORE AND AFTER EACH TUBE FEEDING RD WILL CONTINUE TO MONITOR AND FOLLOW UP, THANK YOU. Addendum: 09/09/19 at [address] Amended: Links added.
[2019-09-09] MEDS: MULTIVITS W-MIN/FERROUS GLUC 237 ML BOTTLE PEG SCH (14:58)
[2019-09-09 16:00] VITALS: BP 144/85
[2019-09-09 20:56] VITALS: BP 151/67
[2019-09-10 01:13] VITALS: BP 160/82
[2019-09-10 04:12] VITALS: BP 134/91
[2019-09-10 06:02] LABS: ALBUMIN 2.1 g/dL (3.5-5.0); CREATININE 1.1 mg/dL (0.5-1.5); PHOSPHORUS 2.7 mg/dL (2.5-4.9); POTASSIUM 3.5 mmol/L (3.5-5.1)
[2019-09-10] MEDS ORDERED: POTASSIUM CHLORIDE 10% ELIXIR 20 MEQ/15 ML UDCUP ONE (06:36)
--- NOTE | 2019-09-10 07:51 | NUR ---
PATIENT UPDATE Sodium still at 155 despite the water flushes. Dr. Pierre came over at 2350 , updated with the pt's status about the hypernatremia. MD stated to continue with the h2o flushes. Potassium this am at 3.5, started on the oral hypokalemia protocol. Potassium supplement administered through the peg with the scheduled feeding at 0630, will continue to monitor.
[2019-09-10] MEDS: PHARMACY COMMUNICATION MISC SCH ×3 (07:56→14:13)
[2019-09-10 08:00] VITALS: BP 133/69
[2019-09-10] MEDS ORDERED: LIDOCAINE HCL-MPF 1% 2ML VIAL IV PRN (08:00)
[2019-09-10] MEDS ORDERED: POTASSIUM CHLORIDE 20MEQ/100ML 100 ML IV PRN (08:00)
[2019-09-10] MEDS ORDERED: POTASSIUM CHLORIDE 20 MEQ ERTAB PO PRN (08:00)
[2019-09-10] MEDS ORDERED: POTASSIUM CHLORIDE 10% ELIXIR 20 MEQ/15 ML UDCUP PO PRN (08:00)
[2019-09-10] MEDS: COLLAGENASE APPL TP SCH (09:00)
[2019-09-10] MEDS: SODIUM HYPOCHLORITE 0.25% [HALF STRENGTH] 473 ML TOPICAL SOLN TP SCH (09:00)
[2019-09-10] MEDS: MULTIVITS W-MIN/FERROUS GLUC 237 ML BOTTLE PEG SCH (10:13)
[2019-09-10] MEDS: FAMOTIDINE 20MG TAB 20 MG TAB PEG SCH (10:14)
[2019-09-10] MEDS: DOCUSATE NA 100MG/10ML UDCUP PEG SCH (10:14)
[2019-09-10] MEDS: LISINOPRIL 10 MG TABLET PEG SCH (10:15)
[2019-09-10] MEDS: ASCORBIC ACID 500 MG TAB PEG SCH ×2 (10:16→20:17)
[2019-09-10] MEDS: ASPIRIN 81MG TAB.CHEW PEG SCH (10:16)
[2019-09-10] MEDS: FUROSEMIDE 20 MG TABLET PEG SCH (10:16)
[2019-09-10] MEDS: ZOSYN 3.375GM+NS 50ML 50 ML IV SCH ×2 (10:17→20:18)
[2019-09-10] MEDS: LEVOFLOXACIN 750 MG TABLET PEG SCH (10:18)
[2019-09-10 12:00] VITALS: BP 136/68
[2019-09-10 16:00] VITALS: BP 132/64
[2019-09-10 20:00] VITALS: BP 137/51
[2019-09-11] VITALS: BP 149/68
[2019-09-11 04:00] VITALS: BP_SYST 134; BP_SYST 141; BP_DIAS 78; BP_DIAS 88
[2019-09-11 06:45] LABS: ALBUMIN 2.4 g/dL (3.5-5.0); CREATININE 1.1 mg/dL (0.5-1.5); PHOSPHORUS 2.5 mg/dL (2.5-4.9); POTASSIUM 4.1 mmol/L (3.5-5.1)
[2019-09-11 08:00] VITALS: BP 147/67
[2019-09-11] MEDS: PHARMACY COMMUNICATION MISC SCH ×3 (08:00→14:45)
[2019-09-11] MEDS: COLLAGENASE APPL TP SCH (09:00)
[2019-09-11] MEDS: SODIUM HYPOCHLORITE 0.25% [HALF STRENGTH] 473 ML TOPICAL SOLN TP SCH (09:00)
[2019-09-11] MEDS: ZOSYN 3.375GM+NS 50ML 50 ML IV SCH ×2 (10:25→21:10)
[2019-09-11] MEDS: FUROSEMIDE 20 MG TABLET PEG SCH (10:25)
[2019-09-11] MEDS: ASCORBIC ACID 500 MG TAB PEG SCH ×2 (10:25→21:10)
[2019-09-11] MEDS: LISINOPRIL 10 MG TABLET PEG SCH (10:25)
[2019-09-11] MEDS: DOCUSATE NA 100MG/10ML UDCUP PEG SCH (10:26)
[2019-09-11] MEDS: MULTIVITS W-MIN/FERROUS GLUC 237 ML BOTTLE PEG SCH (10:26)
[2019-09-11] MEDS: FAMOTIDINE 20MG TAB 20 MG TAB PEG SCH (10:26)
[2019-09-11] MEDS: ASPIRIN 81MG TAB.CHEW PEG SCH (10:26)
[2019-09-11 11:17] VITALS: BP 144/66
--- NOTE | 2019-09-11 13:32 | NUR ---
RD FOLLOW UP PT IS TOLERATING CURRENT TUBE FEEDING RECOMMENDATIONS. FLUSHES HAVE BEEN INCREASED PER NURSING. PT IS RECEIVING ALYSHA BID AT THIS TIME. LABS REVIEWED. MEDS REVIEWED. SACRUM ULCER NOTED. RD RECOMMENDS TO CONTINUE WITH INCREASED FLUSHES CONTINUE TUBE FEEDING RECOMMENDATIONS AND ALYSHA BID WILL CONTINUE TO MONITOR ELEVATED NA RD WILL CONTINUE TO MONITOR AND FOLLOW UP, THANK YOU. Addendum: 09/11/19 at [address] Amended: Links added.
[2019-09-11 16:00] VITALS: BP 132/58
[2019-09-11 19:25] VITALS: BP 142/70
[2019-09-12] VITALS (7 sets, daily range): BP systolic 110–145; BP diastolic 52–67
--- NOTE | 2019-09-12 07:35 | NUR ---
PEG TUBE FEEDING: (2200 and 0600 am) Pt received gravity feeding of Jevity 1.5 at 2215 and 0725 am. PEG checked for placement ( at the level of 2cm just above the bumper ), intact and with no residuals. Head of bed positioned at 45 degrees. Jevity 1.5 ,237 ml given via gravity per MD orders with 400 cc free water,TID. Abdomen soft, nontender and active bowel sounds. Had large soft BM last night. Aspiration precautions maintained. Lung sounds clear, no coughing noted. O2Sat at 97-98%, room air. Feeding tolerated well. Abdominal binder in place. Distress / discomfort not noted.
[2019-09-12] MEDS: PHARMACY COMMUNICATION MISC SCH ×3 (08:00→16:00)
[2019-09-12] MEDS: COLLAGENASE APPL TP SCH (09:00)
[2019-09-12] MEDS: SODIUM HYPOCHLORITE 0.25% [HALF STRENGTH] 473 ML TOPICAL SOLN TP SCH (09:00)
[2019-09-12 09:37] LABS: CREATININE 1.2 mg/dL (0.5-1.5); POTASSIUM 3.9 mmol/L (3.5-5.1)
--- NOTE | 2019-09-12 10:00 | NUR ---
DR. CHRISS LESTER MD PAGED TO REPORT BMP RESULTS. AWAITING CALLBACK
[2019-09-12] MEDS: ZOSYN 3.375GM+NS 50ML 50 ML IV SCH ×2 (10:31→21:58)
[2019-09-12] MEDS: LEVOFLOXACIN 750 MG TABLET PEG SCH (10:31)
[2019-09-12] MEDS: DOCUSATE NA 100MG/10ML UDCUP PEG SCH (10:31)
[2019-09-12] MEDS: ASCORBIC ACID 500 MG TAB PEG SCH ×2 (10:31→21:58)
[2019-09-12] MEDS: LISINOPRIL 10 MG TABLET PEG SCH (10:32)
[2019-09-12] MEDS: FAMOTIDINE 20MG TAB 20 MG TAB PEG SCH (10:33)
[2019-09-12] MEDS: MULTIVITS W-MIN/FERROUS GLUC 237 ML BOTTLE PEG SCH (10:36)
[2019-09-12] MEDS: ASPIRIN 81MG TAB.CHEW PEG SCH (11:34)
--- NOTE | 2019-09-12 14:00 | NUR ---
PEG TUBE BOLUS FEEDING VERIFIED TUBE PLACEMENT VIA AUSCULTATION. NO RESIDUAL CONTENT. FLUSHED PEG TUBE WITH 20 CC OF WATER. ADMINISTERED 1 CAN OF JEVITY 1.5. FLUSHED AFTER WITH 20 CC OF WATER. ADMINISTERED ALYSHA DILUTED IN 8 OZ OF WATER. FLUSHED PEG TUBE WITH 20CC OF WATER.
--- NOTE | 2019-09-12 18:00 | NUR ---
PEG TUBE BOLUS FEEDING VERIFIED TUBE PLACEMENT VIA AUSCULTATION. NO RESIDUAL CONTENT. FLUSHED PEG TUBE WITH 20 CC OF WATER. ADMINISTERED 1 CAN OF JEVITY 1.5. FLUSHED PEG TUBE WITH 20CC OF WATER.
[2019-09-13 03:18] VITALS: BP 105/55
--- NOTE | 2019-09-13 05:45 | NUR ---
PEG TUBE FEEDING: (2200 and 0600 am) Pt received gravity feeding of Jevity 1.5 at 2200 and 0530 am. PEG checked for placement ( at the level of 2cm just above the bumper ), intact and with no residuals. Head of bed positioned at 45 degrees. Jevity 1.5 ,237 ml given via gravity per MD orders with 400 cc free water,TID. Abdomen soft, nontender and active bowel sounds. Had large soft BM last night and at 0318. Aspiration precautions maintained. Lung sounds clear, no coughing noted. O2Sat at 97-98%, room air. Feeding tolerated well. Stoma site dressing changed with scant of blood noted. Abdominal binder in place. Distress / discomfort not noted.
[2019-09-13 06:24] LABS: CREATININE 1.2 mg/dL (0.5-1.5); PHOSPHORUS 3.5 mg/dL (2.5-4.9); POTASSIUM 3.9 mmol/L (3.5-5.1)
[2019-09-13 07:18] VITALS: BP_SYST 105; BP_SYST 115; BP_DIAS 44; BP_DIAS 49
[2019-09-13] MEDS: PHARMACY COMMUNICATION MISC SCH ×2 (08:00)
[2019-09-13] MEDS: COLLAGENASE APPL TP SCH (09:00)
[2019-09-13] MEDS: SODIUM HYPOCHLORITE 0.25% [HALF STRENGTH] 473 ML TOPICAL SOLN TP SCH (09:00)
[2019-09-13] MEDS: LISINOPRIL 10 MG TABLET PEG SCH (09:00)
--- NOTE | 2019-09-13 10:00 | NUR ---
PEG TUBE BOLUS FEEDING VERIFIED TUBE PLACEMENT VIA AUSCULTATION. NO RESIDUAL CONTENT. FLUSHED PEG TUBE WITH 30 CC OF WATER. ADMINISTERED 1 CAN OF JEVITY 1.5. FLUSHED AFTER WITH 30 CC OF WATER. ADMINISTERED SCHEDULED MEDICATIONS VIA PEG TUBE CRUSHED AND DILUTED IN WATER. FLUSHED PEG TUBE WITH 30CC OF WATER.
[2019-09-13] MEDS: ZOSYN 3.375GM+NS 50ML 50 ML IV SCH ×2 (10:24→22:49)
[2019-09-13] MEDS: ASPIRIN 81MG TAB.CHEW PEG SCH (10:25)
[2019-09-13] MEDS: DOCUSATE NA 100MG/10ML UDCUP PEG SCH (10:26)
[2019-09-13] MEDS: MULTIVITS W-MIN/FERROUS GLUC 237 ML BOTTLE PEG SCH (10:26)
[2019-09-13] MEDS: ASCORBIC ACID 500 MG TAB PEG SCH ×2 (10:26→22:49)
[2019-09-13] MEDS: FAMOTIDINE 20MG TAB 20 MG TAB PEG SCH (10:29)
[2019-09-13 11:01] VITALS: BP 134/62
[2019-09-13 16:02] VITALS: BP 116/67
--- NOTE | 2019-09-13 17:08 | NUR ---
CM NOTE PATIENT BUN INCREASED FROM YESTERDAY, PATIENT NOT READY FOR DISCHARGE. DR. BANERJEE TO GIVE ORDERS AND ROUND WITH PATIENT. BERHANE FROM [facility], FACILITY REP, MADE AWARE.
[2019-09-13 19:08] VITALS: BP 136/65
[2019-09-13 23:15] VITALS: BP 121/62
[2019-09-14 03:30] VITALS: BP 132/57
--- NOTE | 2019-09-14 06:00 | NUR ---
PEG TUBE FEEDING: (2200 and 0600 am) Pt received gravity feeding of Jevity 1.5. PEG checked for placement ( at the level of 2cm just above the bumper ), intact and with no residuals. Head of bed positioned at 45 degrees. Jevity 1.5 ,237 ml given via gravity per MD orders with 400 cc free water,TID. Abdomen soft, nontender and active bowel sounds. Had large soft BM last night. Aspiration precautions maintained. Lung sounds clear, no coughing noted. O2Sat at 98%, room air. Feeding tolerated well. Stoma site dressing changed with scant of blood noted. Abdominal binder in place. Distress / discomfort not noted.
[2019-09-14 08:00] VITALS: BP 119/76
[2019-09-14] MEDS: PHARMACY COMMUNICATION MISC SCH ×3 (08:00→10:42)
[2019-09-14] MEDS: SODIUM HYPOCHLORITE 0.25% [HALF STRENGTH] 473 ML TOPICAL SOLN TP SCH ×2 (08:13→10:41)
[2019-09-14] MEDS: COLLAGENASE APPL TP SCH ×2 (08:13→10:41)
[2019-09-14] MEDS: ZOSYN 3.375GM+NS 50ML 50 ML IV SCH ×2 (10:33→20:17)
[2019-09-14] MEDS: DOCUSATE NA 100MG/10ML UDCUP PEG SCH (10:35)
[2019-09-14] MEDS: FAMOTIDINE 20MG TAB 20 MG TAB PEG SCH (10:35)
[2019-09-14] MEDS: LEVOFLOXACIN 750 MG TABLET PEG SCH (10:35)
[2019-09-14] MEDS: ASPIRIN 81MG TAB.CHEW PEG SCH (10:35)
[2019-09-14] MEDS: ASCORBIC ACID 500 MG TAB PEG SCH ×2 (10:35→20:17)
[2019-09-14] MEDS: LISINOPRIL 10 MG TABLET PEG SCH (10:40)
[2019-09-14] MEDS: MULTIVITS W-MIN/FERROUS GLUC 237 ML BOTTLE PEG SCH (10:41)
[2019-09-14 12:00] VITALS: BP 131/64
[2019-09-14 16:00] VITALS: BP 110/56
--- NOTE | 2019-09-14 16:13 | NUR ---
ROMA Follow up Note Pt tolerating Jevity 1.5 Bolus tube feedings. Recommend to monitor Flushes. Monitoring nutritional labs: Na 148, Cl 112, GFR 45, BUN 86, BG 173, Ca 7.8, Alb 2.0. Pt also receiving Aurelio BID, as well as Vitamin C for wound healing support. Addendum: 09/14/19 at [address] Amended: Links added.
[2019-09-14 19:30] VITALS: BP 123/61
[2019-09-14] MEDS: ACETAMINOPHEN ELIXIR 650 MG/20.3 ML UDCUP PEG PRN (20:24)
[2019-09-15] VITALS: BP 116/71
[2019-09-15 04:11] VITALS: BP 123/50
[2019-09-15 06:04] LABS: CREATININE 1.1 mg/dL (0.5-1.5); POTASSIUM 3.7 mmol/L (3.5-5.1)
[2019-09-15 07:35] VITALS: BP 151/73
[2019-09-15] MEDS: FAMOTIDINE 20MG TAB 20 MG TAB PEG SCH (08:41)
[2019-09-15] MEDS: MULTIVITS W-MIN/FERROUS GLUC 237 ML BOTTLE PEG SCH (08:41)
[2019-09-15] MEDS: DOCUSATE NA 100MG/10ML UDCUP PEG SCH (08:41)
[2019-09-15] MEDS: ASPIRIN 81MG TAB.CHEW PEG SCH (08:42)
[2019-09-15] MEDS: ASCORBIC ACID 500 MG TAB PEG SCH ×2 (08:42→21:30)
[2019-09-15] MEDS: LISINOPRIL 10 MG TABLET PEG SCH (08:43)
[2019-09-15] MEDS: ZOSYN 3.375GM+NS 50ML 50 ML IV SCH (08:43)
--- NOTE | 2019-09-15 10:00 | NUR ---
PEG FEEDING JEVITY 1.5 AND ALYSHA GIVEN VIA PEG. PATIENT TOLERATED FEEDING WELL. NO DISCOMFORT NOTED AT THIS TIME.
[2019-09-15 11:00] VITALS: BP 116/51
--- NOTE | 2019-09-15 11:40 | NUR ---
ROUNDS PER DR. FRANCIS, PATIENT WITH CHRONIC BLADDER ISSUES. DO NOT REMOVE INIGUEZ AT THIS TIME. INIGUEZ IS CHANGED MONTHLY. LAST CHANGED ON 09/07/19.
--- NOTE | 2019-09-15 14:10 | NUR ---
PEG FEEDING JEVITY 1.5 GIVEN VIA PEG AND FLUSHED WITH H2O, PATIENT TOLERATED WELL. NO DISTRESS NOTED.
[2019-09-15 16:15] VITALS: BP 110/49
--- NOTE | 2019-09-15 18:15 | NUR ---
PEG FEEDING 40ML RESIDUAL NOTED FROM PEG, NO FEEDING GIVEN AT THIS TIME. WILL RECHECK RESIDUAL.
[2019-09-15 20:00] VITALS: BP 133/47
[2019-09-16] VITALS: BP 138/72
[2019-09-16 04:00] VITALS: BP 122/56
--- NOTE | 2019-09-16 06:00 | NUR ---
PEG TUBE FEEDING: (2200 and 0600 am) Pt. received gravity feeding of Jevity 1.5 and Aurelio (1pack). PEG checked for placement ( at the level of 2cm just above the bumper ), intact and with no residuals. Head of bed positioned at 45 degrees. Jevity 1.5 ,237 ml given via gravity per MD orders with 400 cc free water,TID. Abdomen soft, nontender and active bowel sounds. Had large soft BM last night. Aspiration precautions maintained. Lung sounds clear, no coughing noted. O2Sat at 98%-100%, room air. Feeding tolerated well. Abdominal binder in place. Distress / discomfort not noted.
[2019-09-16 08:07] VITALS: BP 129/53
[2019-09-16] MEDS: LISINOPRIL 10 MG TABLET PEG SCH (08:55)
[2019-09-16] MEDS: ASPIRIN 81MG TAB.CHEW PEG SCH (08:55)
[2019-09-16] MEDS: FAMOTIDINE 20MG TAB 20 MG TAB PEG SCH (08:55)
[2019-09-16] MEDS: DOCUSATE NA 100MG/10ML UDCUP PEG SCH (08:55)
[2019-09-16] MEDS: ASCORBIC ACID 500 MG TAB PEG SCH (08:55)
[2019-09-16] MEDS: SODIUM HYPOCHLORITE 0.25% [HALF STRENGTH] 473 ML TOPICAL SOLN TP SCH (08:57)
[2019-09-16] MEDS: COLLAGENASE APPL TP SCH (08:58)
[2019-09-16] MEDS: MULTIVITS W-MIN/FERROUS GLUC 237 ML BOTTLE PEG SCH (08:59)
[2019-09-16 12:38] VITALS: BP 135/76
[2019-09-16 16:52] VITALS: BP 130/50
--- NOTE | 2019-09-16 17:23 | NUR ---
PT D/C AND PAPER WORK DONE, PEND EMS FOR TRANSFER TO [facility], DAUGHTER AWARE; LA. INSTRUCTIONS GIVEN: 1. Continue home medications as orders no new prescription 2. Follow-up with Dr Donald at [facility] 3. Patient to follow-up Dr Pierre as needed 4. Patient to be discharge with hollingsworth per Dr. Wilde. due to ulcer to sacral area. 5. Patient has completed antibiotic course as per Dr. Wilde. 6. Pt. will continue wound care at [facility], orders faxed nurse manuel lucero aware.
--- NOTE | 2019-09-16 18:00 | NUR ---
PT TRANSFERRED VIA EMS TO [facility] PT IN NO DISTRESS.
== END 2019-09-16 17:53 | DRG 393 ==
LOC: EDH 09:59 → EDHIP 15:50 → 3AH 21:23
PROVIDERS: ADMIT Internal Medicine Infectious Disease; ATTEND Internal Medicine Infectious Disease
PROC: 0DH63UZ Insertion of Feeding Device into Stomach, Percutaneous Approach (ICD-10-PCS; principal; 2019-09-07)
PROC: 0DP6XUZ Removal of Feeding Device from Stomach, External Approach (ICD-10-PCS; 2019-09-07)
DX: K94.23 Gastrostomy malfunction (principal); A41.50 Gram-negative sepsis, unspecified; L89.154 Pressure ulcer of sacral region, stage 4; E43 Unspecified severe protein-calorie malnutrition; N39.0 Urinary tract infection, site not specified; N17.9 Acute kidney failure, unspecified; E87.0 Hyperosmolality and hypernatremia; E86.0 Dehydration; F03.90 Unspecified dementia, unspecified severity, without behavioral disturbance, psychotic disturbance, mood disturbance, and anxiety; R13.12 Dysphagia, oropharyngeal phase; I12.9 Hypertensive chronic kidney disease with stage 1 through stage 4 chronic kidney disease, or unspecified chronic kidney disease; N18.3 Chronic kidney disease, stage 3 (moderate); E03.9 Hypothyroidism, unspecified; E11.22 Type 2 diabetes mellitus with diabetic chronic kidney disease; E11.65 Type 2 diabetes mellitus with hyperglycemia; M19.90 Unspecified osteoarthritis, unspecified site; Y83.3 Surgical operation with formation of external stoma as the cause of abnormal reaction of the patient, or of later complication, without mention of misadventure at the time of the procedure; K21.0 Gastro-esophageal reflux disease with esophagitis; K29.00 Acute gastritis without bleeding; D50.9 Iron deficiency anemia, unspecified; I25.10 Atherosclerotic heart disease of native coronary artery without angina pectoris; Z74.01 Bed confinement status; Z87.01 Personal history of pneumonia (recurrent); Z68.23 Body mass index [BMI] 23.0-23.9, adult; Z79.899 Other long term (current) drug therapy
CPT/HCPCS: 36415; 43246; 71045; 74018; 80048; 80053; 80069; 80202; 81001; 82550; 82948; 83605; 83735; 84484; 85025; 85027; 85610; 85730; 87040; 87077; 87088; 87186; 93005; 93306; A4606; G0378; J1650; J2543; J2704; J3370; J3480; J3490; J7030; Q9963

== ENCOUNTER 2019-09-26 12:02 | Inpatient (IN) | payer MEDICARE ==
[~2019-09-26] VITALS: Ht 157.5 cm; Wt 59.1 kg
[~2019-09-26 12:02] MED LIST changes: +ASPI-555 PEG; -CLON0.1T PO; +FAMO20TA8 PEG; +LEVO750T21 PEG; -METO10TA41 PEG; +NEOM1PAC2 TP; +NYSTPW TP; +ONDA4TAB10 PEG; +SANTO TP
[2019-09-26 13:11] LABS: BASOPHILS % (AUTO) 0.4 % (0.0-5.0); EOSINOPHILS % (AUTO) 3.1 % (0.0-8.0); HEMATOCRIT 31.3 % (36-48); LYMPHOCYTES % (AUTO) 24.7 % (21.0-51.0); MEAN CORPUSCULAR HEMOGLOBIN 32.6 pg (27.0-33.0); MEAN CORPUSCULAR HGB CONC 31.9 g/dL (32.0-36.0); MONOCYTES % (AUTO) 11.9 % (3.0-13.0); NEUTROPHILS % (AUTO) 59.5 % (40.0-77.0); PLATELET COUNT (AUTO) 294 K/uL (130-400); RED BLOOD CELL COUNT(AUTO) 3.07 MIL/uL (4.00-5.50)
[2019-09-26 13:26] LABS: CREATININE 0.9 mg/dL (0.5-1.5); POTASSIUM 4.3 mmol/L (3.5-5.1)
[2019-09-26 13:31] LABS: ALBUMIN 2.5 g/dL (3.5-5.0); BILIRUBIN,TOTAL 0.3 mg/dL (0.2-1.0); TOTAL PROTEIN, SERUM 7.4 g/dL (6.0-8.3)
[2019-09-26 13:43] LABS: INR 1.03 (0.85-1.15); PROTHROMBIN TIME 11.1 SEC (9.6-11.6)
[2019-09-26] MEDS ORDERED: IOHEXOL 350 MG/ML 100ML INFUS..BTL IV ONE (14:11)
[2019-09-26] MEDS ORDERED: CEFTRIAXONE SODIUM 1 GM ONE (18:28)
[2019-09-26 18:29] LABS: BASOPHILS % (AUTO) 0.5 % (0.0-5.0); EOSINOPHILS % (AUTO) 2.7 % (0.0-8.0); HEMATOCRIT 34.2 % (36-48); LYMPHOCYTES % (AUTO) 29.3 % (21.0-51.0); MEAN CORPUSCULAR HEMOGLOBIN 33.1 pg (27.0-33.0); MEAN CORPUSCULAR HGB CONC 32.7 g/dL (32.0-36.0); MEAN CORPUSCULAR VOLUME 101.2 fL (79-99); MONOCYTES % (AUTO) 9.9 % (3.0-13.0); NEUTROPHILS % (AUTO) 57.3 % (40.0-77.0); PLATELET COUNT (AUTO) 309 K/uL (130-400); RED BLOOD CELL COUNT(AUTO) 3.38 MIL/uL (4.00-5.50); RED CELL DISTRIBUTION WIDTH 12.8 % (11.0-15.5)
[2019-09-26] MEDS: DEXTROSE 5 % AND 0.9 % NACL 1,000 ML IV SCH (18:30)
[2019-09-26] MEDS ORDERED: ACETAMINOPHEN 650 MG SUPPOSITORY RC PRN ×2 (18:30)
[2019-09-26 18:34] LABS: CREATININE 0.9 mg/dL (0.5-1.5)
[2019-09-26 18:35] LABS: PROTHROMBIN TIME 10.8 SEC (9.6-11.6)
[2019-09-26] MEDS: ZOSYN 3.375GM+NS 50ML 50 ML IV SCH (21:00)
[2019-09-26 21:10] VITALS: BP 146/66
--- NOTE | 2019-09-26 21:10 | NUR ---
ER ADMIT PATIENT RECEIVED FROM ER WITH A DIAGNOSIS OF A DISLODGED PEG TUBE UNDER THE CARE OF . PATIENT AWAKE AND CONFUSED. DOES NOTE VOICES NEEDS. NO FACIAL GRIMACING NOTED. RESP EVEN AND UNLABORED. NO SOB NOTED. ON ROOM AIR. HEAD TO TOE ASSESSMENT DONE. ORDERS RECEIVED AND CARRIED OUT. 18FR. INIGUEZ CATHETER PATENT AND DRAINING CLOUDY YELLOW URINE. VITALS STABLE. AFEBRILE. IVF STARTED. WILL CONTINUE TO BE OBSERVED. CALL LIGHT WITHIN REACH. Addendum: 09/27/19 at 0334 by KARMA SOUZA RN RN Amended: Links added.
[2019-09-26] MEDS ORDERED: ENOX30DI4 SQ (21:15)
[2019-09-26] MEDS ORDERED: LISI10TA7 GT (21:15)
[2019-09-26] MEDS ORDERED: AMMO385C4 TP (21:15)
--- NOTE | 2019-09-26 22:30 | NUR ---
TELEPHONE CONSENT FOR EGD WITH PEG TUBE PLACEMENT RECEIVED FROM JUAN JOSE ROMAN, DAUGHTER AT THIS TIME. ALL QUESTIONS ANSWERED. NO FURTHER CONCERNS WILL CONTINUE TO BE OBSERVED. Addendum: 09/27/19 at 0335 by KARMA SOUZA RN RN Amended: Links added.
[2019-09-26 23:51] VITALS: BP 131/72
[2019-09-27] VITALS (22 sets, daily range): BP systolic 102–148; BP diastolic 38–86
[2019-09-27] MEDS: ZOSYN 3.375GM+NS 50ML 50 ML IV SCH ×3 (04:15→21:31)
[2019-09-27 06:54] LABS: HEMATOCRIT 28.6 % (36-48); MEAN CORPUSCULAR HEMOGLOBIN 33.1 pg (27.0-33.0); MEAN CORPUSCULAR HGB CONC 32.9 g/dL (32.0-36.0); MEAN CORPUSCULAR VOLUME 100.7 fL (79-99); PLATELET COUNT (AUTO) 284 K/uL (130-400); RED BLOOD CELL COUNT(AUTO) 2.84 MIL/uL (4.00-5.50); RED CELL DISTRIBUTION WIDTH 12.8 % (11.0-15.5); WHITE BLOOD COUNT (AUTO) 6.4 K/uL (4.8-10.8)
[2019-09-27 07:06] LABS: CREATININE 0.9 mg/dL (0.5-1.5); POTASSIUM 3.7 mmol/L (3.5-5.1)
--- NOTE | 2019-09-27 11:06 | NUR ---
RD Notification - Tube Feeding Recommendations Pt admitted for Dislodged PEG tube. Pt is advanced age (89 y/o). Pending Peg placement. Tube feeding Recommendations placed in Pt chart. Pt with increased nutritional/protein needs secondary to wound healing (coccyx ulcer). 1) Recommend Bolus tube feeding, Jevity 1.5, 4.5 cans per day to provide 1598kcal, 68gm Protein Flushes: 45ml before and after each feeding. 2) Recommend Aurelio BID, via feeding tube. Instructions attached to tube feeding order, placed in Pt chart. 3)500mg Vitamin C QD, 220mg ZnSO4 QD for wound healing support. RD to continue to continue to monitor. Please notify RD as additional nutrition concerns arise. Thank you. Addendum: 09/27/19 at [address] Amended: Links added.
--- NOTE | 2019-09-27 13:00 | NUR ---
[facility] INITIAL ADVISED THAT PATIENT IS LT RESIDENT OF [facility] , CARE DEPENDENT CALL TO DAUGHTER JUAN JOSE, GOT VERBAL/TELEPHONE MAVIS FOR PATIENT TO RETURN, STATES HAS LIVED THERE ABOUT ONE YEAR. EXPECT EMS TRANSPORT BACK TO FACILITY Addendum: 09/29/19 at 1829 by TAJ CARRILLO RN CM Amended: Links added.
[2019-09-27] MEDS ORDERED: PROPOFOL 10 MG/ML 20ML VIAL IV ONE (13:55)
[2019-09-27] MEDS: DEXTROSE 5 % AND 0.9 % NACL 1,000 ML IV SCH (15:36)
[2019-09-27 18:29] LABS: INR 1.03 (0.85-1.15); PARTIAL THROMBOPLASTIN TIME 28.6 SEC (26.3-35.5); PROTHROMBIN TIME 11.1 SEC (9.6-11.6)
[2019-09-28 03:00] VITALS: BP 151/64
[2019-09-28] MEDS: ZOSYN 3.375GM+NS 50ML 50 ML IV SCH ×3 (04:55→20:27)
[2019-09-28 08:07] VITALS: BP 152/77
--- NOTE | 2019-09-28 09:30 | NUR ---
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 PT AWAKE WHEN ASSESSED MOVEMENT IS LIMITED, BUT DUE TO DEMENTIA WHEN ATTEMPTED TO ASSES PT REFUSED FOR ME TO ASSESS. REPORTED TO PRIMARY NURSE OF DIFFICULTY. PRIMARY NURSE CALLING PRIMARY MD TO NOTIFY.
[2019-09-28] MEDS ORDERED: LORAZEPAM 2 MG/ML 1 ML VIAL IVP SCH (10:15)
[2019-09-28] MEDS: DEXTROSE 5 % AND 0.9 % NACL 1,000 ML IV SCH (10:30)
--- NOTE | 2019-09-28 11:38 | NUR ---
UNSUCCESSFUL PICC PLACEMENT PT NONE COOPERATIVE DURING PICC PLACEMENT, ATTEMPTED SEVERAL TIMES, BUT PT KEPT MOVING. WILL ATTEMPT LATER WITH ASSISTANCE.
[2019-09-28 12:00] VITALS: BP 135/76
[2019-09-28] MEDS ORDERED: MUPIROCIN OINTMENT 22 GM TUBE TP SCH (12:00)
[2019-09-28] MEDS ORDERED: VANCOMYCIN PROTOCOL PER PHARMACY IV SCH (13:00)
--- NOTE | 2019-09-28 13:58 | NUR ---
patient is confused, unable to sign IM Letter, no family at bedside.
--- NOTE | 2019-09-28 14:45 | NUR ---
LEANNA ANAND RN AND I ATTEMPTED TO PLACE PICC LINE. DIFFICULT PICC, WAS UNSUCCESSFUL. INFORMED JULIO CESAR ALBARADO .
[2019-09-28] MEDS: VANCOMYCIN 1GM+NS 250ML 250 ML IV SCH (15:05)
[2019-09-28] MEDS: NEOMY SULF/BACITRAC ZN/POLY OINT 30GM TUBE TP SCH ×2 (15:05→20:28)
--- NOTE | 2019-09-28 15:08 | NUR ---
Pt has alter mental status/dementia and has been ordered picc line for TPN therapy after disloging of PEG tube. Telephone consent for Picc given by Daughter Raul Cleary. Right arm assessed for picc line placement, but pt has very stiff contractured right arm. Left arm more mobile. Unable to access left cephalic and left basilic veins after multiple attempts by myself and Kathy Deshpande, per to assist as well. Kathy stated that she had attempted picc this morning after pt had been given ativan to help calm her and was unsuccessful as well. This has been the third unusccessful attempt at picc placement and unsuccessful due to very difficult venous access and in my opinion is not a good candidate for further PICC attempts. Anusha Morocho, PER notified and will advise Dr. Wilde, ordering MD.
--- NOTE | 2019-09-28 15:42 | NUR ---
RD FOLLOW UP RD CONSULTED FOR TPN RECOMMENDATIONS. S/P EGD. FOUND PEG SITE ABSCESS. COCCYX ULCER NOTED. RD RECOMMENDS TO START CLINIMIX 5/15 VIA TPN AT 65ML/HR RUN LIPID PANEL AND LIPASE, RN NOTIFIED ADD 10ML MULTIVITAMINS TO TPN RECOMMEND VITAMIN C AND ZINC SULFATE FOR WOUND HEALING RD WILL CONTINUE TO MONITOR AND FOLLOW UP, THANK YOU. Addendum: 09/28/19 at [address] Amended: Links added.
[2019-09-28 16:00] VITALS: BP 119/56
[2019-09-28 20:00] VITALS: BP 150/59
[2019-09-28 23:57] VITALS: BP 149/80
[2019-09-29] VITALS (10 sets, daily range): BP systolic 134–195; BP diastolic 60–84
[2019-09-29] MEDS: DEXTROSE 5 % AND 0.9 % NACL 1,000 ML IV SCH (06:30)
[2019-09-29] MEDS: NEOMY SULF/BACITRAC ZN/POLY OINT 30GM TUBE TP SCH ×2 (09:00→21:16)
[2019-09-29] MEDS ORDERED: LIDOCAINE HCL 1% MDV 50ML VIAL ONE (09:11)
[2019-09-29] MEDS ORDERED: LORAZEPAM 2 MG/ML 1 ML VIAL ONE (09:22)
[2019-09-29] MEDS ORDERED: LORAZEPAM 2 MG/ML 1 ML VIAL IVP SCH (09:30)
[2019-09-29] MEDS: ZOSYN 3.375GM+NS 50ML 50 ML IV SCH ×2 (13:00→21:16)
[2019-09-29] MEDS: VANCOMYCIN 1GM+NS 250ML 250 ML IV SCH (18:14)
[2019-09-29] MEDS: M.V.I. IV [ADULT] 10 ML in CLINIMIX E 5%-15% 2,000 ML IV SCH (18:16)
[2019-09-29] MEDS ORDERED: HYDRALAZINE HCL 20 MG/ML VIAL IV SCH (20:15)
[2019-09-30] VITALS (7 sets, daily range): BP systolic 154–167; BP diastolic 70–84
[2019-09-30] MEDS: DEXTROSE 5 % AND 0.9 % NACL 1,000 ML IV SCH ×2 (04:31→22:30)
[2019-09-30] MEDS: ZOSYN 3.375GM+NS 50ML 50 ML IV SCH ×3 (04:32→21:15)
[2019-09-30 04:50] LABS: HEMATOCRIT 30.7 % (36-48); MEAN CORPUSCULAR HEMOGLOBIN 33.7 pg (27.0-33.0); MEAN CORPUSCULAR HGB CONC 32.6 g/dL (32.0-36.0); MEAN CORPUSCULAR VOLUME 103.4 fL (79-99); PLATELET COUNT (AUTO) 278 K/uL (130-400); RED BLOOD CELL COUNT(AUTO) 2.97 MIL/uL (4.00-5.50); RED CELL DISTRIBUTION WIDTH 12.9 % (11.0-15.5); WHITE BLOOD COUNT (AUTO) 9.1 K/uL (4.8-10.8)
[2019-09-30 05:21] LABS: ALBUMIN 2.4 g/dL (3.5-5.0); BILIRUBIN,TOTAL 0.5 mg/dL (0.2-1.0); CREATININE 0.9 mg/dL (0.5-1.5); PHOSPHORUS 2.6 mg/dL (2.5-4.9); POTASSIUM 3.2 mmol/L (3.5-5.1); TOTAL PROTEIN, SERUM 7.2 g/dL (6.0-8.3)
[2019-09-30] MEDS: FUROSEMIDE 20 MG TABLET PEG SCH (08:30)
[2019-09-30] MEDS: LISINOPRIL 10 MG TABLET GT SCH (08:31)
[2019-09-30] MEDS: NEOMY SULF/BACITRAC ZN/POLY OINT 30GM TUBE TP SCH ×2 (08:32→21:29)
--- NOTE | 2019-09-30 10:32 | NUR ---
TPN RECOMMENDATIONS PT IS TOLERATING CURRENT TPN RECOMMENDATIONS. LABS REVIEWED, RN WAS NOTIFIED TO ADD 20% INTRALIPIDS TO TPN. MEDS REVIEWED. COCCYX ULCER NOTED. RD RECOMMENDS TO ADD INTRALIPIDS TO TPN RD RECOMMENDS VITAMIN C AND ZINC SULFATE FOR WOUND HEALING WILL CONTINUE TO MONITOR AND FOLLOW UP, THANK YOU.
--- NOTE | 2019-09-30 18:32 | NUR ---
ACCPTED AT [facility], DR. Delma MARCH DC IN AM . PER JHAVERI, CHART TAGGED Addendum: 09/30/19 at 1833 by TAJ CARRILLO RN CM Amended: Links added.
[2019-09-30] MEDS: VANCOMYCIN 1GM+NS 250ML 250 ML IV SCH (21:15)
[2019-09-30] MEDS: M.V.I. IV [ADULT] 10 ML in CLINIMIX E 5%-15% 2,000 ML IV SCH (21:22)
[2019-10-01 04:00] VITALS: BP 158/78
[2019-10-01] MEDS: ZOSYN 3.375GM+NS 50ML 50 ML IV SCH ×2 (05:34→14:12)
[2019-10-01 08:00] VITALS: BP 164/78
[2019-10-01] MEDS: FUROSEMIDE 20 MG TABLET PEG SCH (09:50)
[2019-10-01] MEDS: LISINOPRIL 10 MG TABLET GT SCH (09:50)
[2019-10-01] MEDS: NEOMY SULF/BACITRAC ZN/POLY OINT 30GM TUBE TP SCH (09:52)
[2019-10-01 11:43] VITALS: BP 163/93
[2019-10-01] MEDS: VANCOMYCIN 1GM+NS 250ML 250 ML IV SCH (14:13)
[2019-10-01 16:00] VITALS: BP 177/79
== END 2019-10-01 18:46 | DRG 394 ==
LOC: EDH 12:02 → OBSVTOIN 17:51 → EDHIP 17:51 → 4CH 20:36
PROVIDERS: ADMIT Internal Medicine Infectious Disease; ATTEND Internal Medicine Infectious Disease
PROC: 0DP68UZ Removal of Feeding Device from Stomach, Via Natural or Artificial Opening Endoscopic (ICD-10-PCS; principal; 2019-09-26)
PROC: 02H633Z Insertion of Infusion Device into Right Atrium, Percutaneous Approach (ICD-10-PCS; 2019-09-26)
PROC: B548ZZA Ultrasonography of Superior Vena Cava, Guidance (ICD-10-PCS; 2019-09-26)
DX: K94.22 Gastrostomy infection (principal); L03.311 Cellulitis of abdominal wall; L02.211 Cutaneous abscess of abdominal wall; N39.0 Urinary tract infection, site not specified; E44.0 Moderate protein-calorie malnutrition; K94.23 Gastrostomy malfunction; R13.12 Dysphagia, oropharyngeal phase; L98.429 Non-pressure chronic ulcer of back with unspecified severity; I10 Essential (primary) hypertension; Z74.01 Bed confinement status
CPT/HCPCS: 36415; 36558; 43235; 74177; 76705; 77001; 80048; 80053; 80061; 80202; 83690; 83735; 84100; 85025; 85027; 85610; 85730; A4606; C1894; G0378; J0360; J0696; J1644; J2060; J2543; J2704; J3370; J3490; J7042; Q9967